=== PATIENT | female | born 1975 | race Caucasian/White ===

== ENCOUNTER 2022-09-16 08:38 | Outpatient (CLI) | payer MEDICAID ==
[2022-09-16 08:50] LABS: BASOPHILS # (AUTO) 0.1 10^3/uL (0.0-0.1); BASOPHILS % (AUTO) 1.2 %; EOSINOPHILS # (AUTO) 0.3 10^3/uL (0.0-0.7); EOSINOPHILS % (AUTO) 4.5 %; HCT - HEMATOCRIT 40.3 % (37.0-47.0); HGB - HEMOGLOBIN 13.2 g/dL (12.0-16.0); LYMPHOCYTES # (AUTO) 2.2 10^3/uL (1.5-3.5); LYMPHOCYTES % (AUTO) 36.5 %; MEAN CORPUSCULAR HEMOGLOBIN 29.9 pg (27.0-31.0); MEAN CORPUSCULAR HGB CONC 32.8 g/dL (32.0-36.0); MEAN CORPUSCULAR VOLUME 91.4 fL (81.0-99.0); MEAN PLATELET VOLUME 9.5 fL (7.9-10.8); MONOCYTES # (AUTO) 0.4 10^3/uL (0.0-1.0); MONOCYTES % (AUTO) 6.3 %; NEUTROPHILS # (AUTO) 3.1 10^3/uL (1.5-6.6); NEUTROPHILS % (AUTO) 51.3 %; PLT - PLATELET COUNT 364 10^3/uL (130-450); RED BLOOD COUNT 4.41 10^6/uL (4.20-5.40); RED CELL DISTRIBUTION WIDTH 12.4 % (12.0-15.0); WHITE BLOOD COUNT 6.1 x10^3/uL (4.8-10.8)
[2022-09-16 09:16] LABS: ALBUMIN 3.9 g/dL (3.2-5.5); ALBUMIN/GLOBULIN RATIO 1.1 (1.0-2.2); ALKALINE PHOSPHATASE 36 IU/L (42-121); ALT ALANINE AMINOTRANSFERASE 17 IU/L (10-60); AST ASPARTATE AMINOTRANSFERASE 18 IU/L (10-42); BILIRUBIN,TOTAL 0.5 mg/dL (0.2-1.0); BUN - BLOOD UREA NITROGEN 22 mg/dL (6-20); CALCIUM 9.2 mg/dL (8.5-10.3); CARBON DIOXIDE - CO2 27 mmol/L (21-32); CHLORIDE 101 mmol/L (101-111); CHOL/HDL RATIO 3.2 (<4.4); CHOLESTEROL 182 mg/dL; CREATININE 0.8 mg/dL (0.4-1.0); GFR - MDRD 78 (>89); GLUCOSE 96 mg/dL (70-100); HDL CHOLESTEROL 57 mg/dL; LDL CHOLESTEROL,CALCULATED 115 mg/dL; POTASSIUM 4.3 mmol/L (3.5-5.0); SODIUM 136 mmol/L (135-145); TOTAL PROTEIN 7.3 g/dL (6.7-8.2); TRIGLYCERIDES 52 mg/dL; VLDL CHOLESTEROL 10 mg/dL
--- NOTE | 2022-09-16 09:53 | XRAY Report ---
PROCEDURE: Lumbar Spine Complete INDICATIONS: BACK PX TECHNIQUE: 4 views of the lumbar spine were acquired. COMPARISON: None. FINDINGS: Bones: 5 [id number] vertebrae are present. Degenerative changes of the facet joints at L4-5 an d L5-S1. Small anterior osteophytes consistent with minimal degenerative changes. There is normal bon y alignment. No vertebral body compression fractures. No suspicious bony lesions. Soft tissues: Overlying bowel gas pattern is normal. No suspicious soft tissue calcifications. IMPRESSION: 1. Multilevel degenerative changes of the lumbar spine with no significant disc space narrowing. 2. Mild facet arthrosis at L4-5 and L5-S1. Reviewed by: Mathieu Miller on 09/16/2022 9:52 AM [facility] Approved by: Mathieu Miller on 09/16/2022 9:52 AM [facility] Station ID: [id number]
[2022-09-16 21:08] LABS: THYROID STIMULATING HORMONE 3.13 uIU/mL (0.34-5.60)
== END 2022-09-16 08:39 | disposition home or self-care (01) ==
LOC: LAB 08:38
PROVIDERS: ATTEND Physician Assistant
DX: M47.816 Spondylosis without myelopathy or radiculopathy, lumbar region (principal); M47.817 Spondylosis without myelopathy or radiculopathy, lumbosacral region; Z13.220 Encounter for screening for lipoid disorders; Z13.29 Encounter for screening for other suspected endocrine disorder
CPT/HCPCS: 36415; 80053; 80061; 83721; 84443; 85025

== ENCOUNTER 2022-12-15 07:50 | Outpatient (CLI) | payer MEDICAID ==
--- NOTE | 2022-12-22 10:02 | Mammography Report ---
BILATERAL DIGITAL SCREENING MAMMOGRAM 3D/2D WITH EXAGGERATED CC: 12/15/2022 CLINICAL: Routine screening. Family history of breast cancer. Comparison is made to exams dated: 08/05/2021 mammogram, 07/01/2021 mammogram, and 06/05/2019 mammogra [facility]. There are scattered areas of fibroglandular density in both breasts (category b / 25%-50% glandular t issue). No significant masses, calcifications, or other findings are seen in either breast. There has been no significant interval change. IMPRESSION: NEGATIVE There is no mammographic evidence of malignancy. A 1 year screening mammogram is recommended. This exam was interpreted at Station ID: [id number]. NOTE: For mammograms, a report in lay terms will be sent to the patient. Approximately 15% of breast malignancies will not be visualized mammographically. In the management of a palpable breast mass, a negative mammogram must not discourage biopsy of a clinically suspicious lesion. Electronically Signed By: Lex jarvis/alana:12/21/2022 16:55:10 letter sent: No_Letter ACR BI-RADS Category 1: Negative 3341F PARENCHYMAL PATTERN: (A) - The breast(s) demonstrate(s) scattered fibroglandular densities. BI-RADS CATEGORY: (1) - 1 RECOMMENDATION: (ANNUAL) - Recommend routine annual screening mammography. [id number] 1 year screening LATERALITY: (B)
== END 2022-12-15 07:51 | disposition home or self-care (01) ==
LOC: DI.S 07:50
DX: Z12.31 Encounter for screening mammogram for malignant neoplasm of breast (principal); Z80.3 Family history of malignant neoplasm of breast

== ENCOUNTER 2022-12-28 08:49 | Outpatient (CLI) | payer MEDICAID | END 2022-12-28 08:50 | disposition home or self-care (01) | LOC: LAB 08:49 | PROVIDERS: ATTEND Physician Assistant | DX: N91.2 Amenorrhea, unspecified (principal) | CPT/HCPCS: 36415; 83001 ==

== ENCOUNTER 2022-12-30 22:24 | Outpatient (CLI) | payer MEDICAID ==
--- NOTE | 2022-12-31 12:58 | Ultrasound Report ---
PROCEDURE: Pelvic w/Transvaginal INDICATIONS: PELVIC PAIN, LLQ ABDOMINAL PAIN TECHNIQUE: Real-time scanning was performed of the pelvic organs, with image documentation. Additional endovagi nal scanning was necessary due to incomplete visualization of the adnexal and endometrial structures by transabdominal scanning. COMPARISON: None. FINDINGS: Uterus: Uterus is anteverted and normal in size at 6.8 x 4.6 x 4.4 cm. The myometrium is homogeneou s. The endometrium measures 5 mm in combined thickness. 2 uterine fibroids are visualized: -Right anterior uterine body, subserosal/intramural, 2.2 x 2.0 x 2.6 cm. -Left posterior uterine body, subserosal/intramural, 3.0 x 2.7 x 3.4 cm. Ovaries: The right ovary measures 2.4 x 1.9 x 3.3 cm, with a calculated ovarian volume of 8 cc. The left ovary measures 2.7 x 1.4 x 2.1 cm, with a calculated ovarian volume of 4 cc. The ovaries have a unremarkable sonographic appearance. Less than 12 follicles can be seen in each ovary. No adnexal masses are seen. Other: No pathologic free abdominal or pelvic fluid. IMPRESSION: 1. Two uterine fibroids are present as above. 2. No adnexal mass visualized. Reviewed by: Jacky Medina MD on 12/31/2022 12:57 PM PDT Approved by: Jacky Medina MD on 12/31/2022 12:57 PM PDT Station ID: [id number]
== END 2022-12-30 22:25 | disposition home or self-care (01) ==
LOC: DI 22:24
PROVIDERS: ATTEND Physician Assistant
DX: D25.1 Intramural leiomyoma of uterus (principal); D25.2 Subserosal leiomyoma of uterus

== ENCOUNTER 2024-02-04 08:10 | Outpatient (CLI) | payer MEDICAID ==
[2024-02-04 08:21] LABS: BASOPHILS # (AUTO) 0.1 10^3/uL (0.0-0.1); BASOPHILS % (AUTO) 1.4 %; EOSINOPHILS # (AUTO) 0.2 10^3/uL (0.0-0.7); EOSINOPHILS % (AUTO) 3.4 %; HCT - HEMATOCRIT 41.6 % (37.0-47.0); HGB - HEMOGLOBIN 13.1 g/dL (12.0-16.0); LYMPHOCYTES # (AUTO) 1.8 10^3/uL (1.5-3.5); LYMPHOCYTES % (AUTO) 31.1 %; MEAN CORPUSCULAR HEMOGLOBIN 29.2 pg (27.0-31.0); MEAN CORPUSCULAR HGB CONC 31.5 g/dL (32.0-36.0); MEAN CORPUSCULAR VOLUME 92.9 fL (81.0-99.0); MEAN PLATELET VOLUME 9.6 fL (7.9-10.8); MONOCYTES # (AUTO) 0.5 10^3/uL (0.0-1.0); MONOCYTES % (AUTO) 7.7 %; NEUTROPHILS # (AUTO) 3.3 10^3/uL (1.5-6.6); NEUTROPHILS % (AUTO) 56.1 %; PLT - PLATELET COUNT 350 10^3/uL (130-450); RED BLOOD COUNT 4.48 10^6/uL (4.20-5.40); RED CELL DISTRIBUTION WIDTH 13.2 % (12.0-15.0); WHITE BLOOD COUNT 5.9 x10^3/uL (4.8-10.8)
[2024-02-04 08:43] LABS: ALBUMIN/GLOBULIN RATIO 1.3 (1.0-2.2); ALKALINE PHOSPHATASE 41 IU/L (42-121); ALT ALANINE AMINOTRANSFERASE 11 IU/L (10-60); AST ASPARTATE AMINOTRANSFERASE 14 IU/L (10-42); BILIRUBIN,TOTAL 0.5 mg/dL (0.2-1.0); BUN - BLOOD UREA NITROGEN 16 mg/dL (6-20); CALCIUM 9.5 mg/dL (8.5-10.3); CARBON DIOXIDE - CO2 29 mmol/L (21-32); CHLORIDE 105 mmol/L (101-111); CHOL/HDL RATIO 2.6 (<4.4); CHOLESTEROL 164 mg/dL; CREATININE 0.8 mg/dL (0.6-1.3); GFR - MDRD 77 (>89); GLUCOSE 87 mg/dL (74-104); HDL CHOLESTEROL 64 mg/dL; LDL CHOLESTEROL,CALCULATED 83 mg/dL; LDL/HDL RATIO 1.3 (<4.4); POTASSIUM 4.3 mmol/L (3.5-4.5); SODIUM 137 mmol/L (135-145); TRIGLYCERIDES 84 mg/dL (48-352); VLDL CHOLESTEROL 17 mg/dL
[2024-02-04 08:57] LABS: THYROID STIMULATING HORMONE 4.73 uIU/mL (0.34-5.60)
== END 2024-02-04 08:11 | disposition home or self-care (01) ==
LOC: LAB 08:10
PROVIDERS: ATTEND Physician Assistant
DX: N91.2 Amenorrhea, unspecified (principal); Z13.9 Encounter for screening, unspecified
CPT/HCPCS: 36415; 80053; 80061; 83001; 83721; 84443; 85025

== ENCOUNTER 2024-06-16 10:28 | Day surgery (SDC) | payer MEDICAID ==
[2024-06-16] MEDS: LACTATED RINGERS 1,000 ML IV ONE ×2 (10:32→12:20)
[2024-06-16 10:52] VITALS: O2SAT 100
[2024-06-16] MEDS ORDERED: PROPOFOL 500 MG/50 ML 500 MG/50 ML VIAL ONE (10:59)
--- NOTE | 2024-06-16 11:06 | ANESTHESIA ---
Pre-Anesthesia VS, & Labs - Diagnosis screening - Procedure colonoscopy Vital Signs: Temp Pulse Resp BP Pulse Ox O2 Flow Rate 36.2 C L 65 16 121/87 H 100 06/16/24 10:36 06/16/24 10:36 06/16/24 10:36 06/16/24 10:36 06/16/24 10:36 Height: 5 ft 11 in Weight (kg): 86.3 kg Body Mass Index: 26.5 BMI Classification: Overweight - NPO Other (prep as directed, last at 7am) - Is Patient ?: No, Waiver signed Home Medications and Allergies Home Medications: Ambulatory Orders Naltrexone HCl [Lotrexone] 1.5 mg ORAL DAILY 06/15/24 buPROPion [Wellbutrin Sr] 100 mg ORAL DAILY 06/15/24 Naltrexone HCl [Lotrexone] 1.5 mg ORAL DAILY 06/15/24 buPROPion [Wellbutrin Sr] 100 mg ORAL DAILY 06/15/24 Allergies/Adverse Reactions: Allergies Allergy/AdvReac Type Severity Reaction Status Date / Time No Known Drug Allergies Allergy Verified 06/15/24 12:58 Anes History & Medical History - Anesthetic History Anesthesia Complications: reports: No previous complications - Medical History Cardiovascular: reports: None Pulmonary: reports: None Gastrointestinal: reports: None Urinary: reports: None Musculoskeletal: reports: None Endocrine/Autoimmune: reports: None Skin: reports: None Smoking Status: Former smoker Psychosocial: reports: Alcohol (one drink most nights) Exam General: Alert, Oriented x3 Dental: WNL Mouth Opening: Greater than 4 Fingerbreadths Neck Mobility: Normal Mallampati classification: II Thyromental Distance: greater than 6 cm Respiratory: Lungs clear Cardiovascular: Regular rate Plan Anesthesia Type: Total IV Consent for Procedure(s) Verified and Reviewed: Yes Code Status: Attempt Resuscitation ASA classification: 2-Mild systemic disease Is this case an emergency?: No
--- NOTE | 2024-06-16 11:30 | HISTORY & PHYSICAL EXAMINATION ---
Chief Complaint - Chief Complaint Chief Complaint: here for colonoscopy History of Present Illness - History Obtained From Records Reviewed: yes History obtained from: pt Exam Limitations: none - History of Present Illness HPI Comment/Other: here for colonoscopy for screening. no gi problems, no anemia, no fhx colon ca. History - Past Medical History Cardiovascular: reports: None Respiratory: reports: None Endocrine/Autoimmune: reports: None GI: reports: None : reports: None HEENT: reports: None Psych: reports: None Musculoskeletal: reports: None Derm: reports: None MRSA Hx?: No Meds/Allgy - Home Medications Home Medications: Ambulatory Orders Medication Instructions Recorded Confirmed Naltrexone HCl [Lotrexone] 1.5 mg ORAL DAILY 06/15/24 06/16/24 buPROPion [Wellbutrin Sr] 100 mg ORAL DAILY 06/15/24 06/16/24 - Allergies Allergies/Adverse Reactions: Allergies Allergy/AdvReac Type Severity Reaction Status Date / Time No Known Drug Allergies Allergy Verified 06/15/24 12:58 Review of Systems - Other Findings Other Findings: 10 pt ros as above otherwise unremarkable Exam - Vital Signs Vital Signs: Vital Signs x48h Temp Pulse Resp BP Pulse Ox 06/16/24 10:36 36.2 C L 65 16 121/87 H 100 - Physical Exam General Appearance: positive: No acute distress, Alert Eyes Bilateral: positive: PERRL, EOMI ENT: positive: No signs of dehydration Neck: positive: No JVD, Trachea midline Respiratory: positive: No respiratory distress Cardiovascular: positive: Regular rate & rhythm Abdomen: positive: No distention Neurologic/Psychiatric: positive: Oriented x3 Conclusion/Plan - Problem List (1) Colon cancer screening Conclusion/Plan: plan colonoscopy. parq held and consent obtained
[2024-06-16] MEDS ORDERED: LIDOCAINE-MPF 2% 5 ML VIAL ONE (11:54)
[2024-06-16] MEDS ORDERED: PROPOFOL 200 MG/20 ML VIAL IVP ONE (11:59)
[2024-06-16 13:08] VITALS: BP 119/73
--- NOTE | 2024-06-16 13:49 | ANESTHESIA POST OP EVALUATION ---
Anesthesia Post Eval - Post Anesthesia Eval Vitals: Last Vital Signs Temp 36.4 C L 06/16/24 12:50 Pulse 51 L 06/16/24 12:50 Resp 16 06/16/24 12:50 BP 119/73 06/16/24 12:50 Pulse Ox 100 06/16/24 12:50 O2 Flow Rate CV Function Including HR & BP: Stable Pain Control: Satisfactory Nausea & Vomiting: Negative Mental Status: Baseline Respiratory Status: Airway Patent Hydration Status: Satisfactory Anesthesia Complications: None
== END 2024-06-16 10:29 | disposition home or self-care (01) ==
LOC: SDS 10:28
PROVIDERS: ATTEND Surgery
DX: Z12.11 Encounter for screening for malignant neoplasm of colon (principal); Z53.20 Procedure and treatment not carried out because of patient's decision for unspecified reasons
CPT/HCPCS: 45378; J7120